=== PATIENT | male | born 1960 | race Caucasian/White ===

== ENCOUNTER 2018-03-01 13:15 | Emergency (ER) | payer SELFPAY ==
[2018-03-01 13:57] VITALS: BP 132/90; TEMP 98.6; O2SAT 97
--- NOTE | 2018-03-01 14:02 | ED.PDOC ---
History of Present Illness - General Chief Complaint: Skin/Abrasion/Tear Stated Complaint: rash, "shingles" Time Seen by Provider: 03/01/18 13:59 Source: patient Exam Limitations: no limitations - History of Present Illness Initial Comments: The patient is a 57-year-old male presenting to the emergency room secondary to 3 days of pain to his right lower abdomen at the site where he has previously had shingles. He does have a rash that is about the size of a silver dollar. He does have scarring from the previous shingles. He does not have any tramadol or acyclovir. He has been more than a year since his last outbreak. No other symptoms. No evidence of any deeper infection at this time. No evidence of significant rash elsewhere. Timing/Duration: other - 3 days Severity: moderate Improving Factors: nothing Worsening Factors: nothing Associated Symptoms: denies symptoms Allergies/Adverse Reactions: Allergies Ibuprofen Allergy (Verified 03/01/18 13:50) Ketorolac Tromethamine [From Toradol] Allergy (Verified 03/01/18 13:50) NSAIDs Allergy (Verified 03/01/18 13:50) Penicillins Allergy (Verified 03/01/18 13:49) Sulfa Antibiotics Allergy (Verified 03/01/18 13:49) Home Medications: Ambulatory Orders Acyclovir [Zovirax] 800 mg PO 5XD #35 tab 03/01/18 Atenolol [Tenormin] 25 mg PO DAILY 03/01/18 Gabapentin 600 mg PO BID 03/01/18 Tramadol HCl 50 mg PO Q8HR PRN #30 tab 03/01/18 Review of Systems - Review of Systems Constitutional: States: no symptoms reported EENTM: States: no symptoms reported Respiratory: States: no symptoms reported Cardiology: States: no symptoms reported Gastrointestinal/Abdominal: States: no symptoms reported Genitourinary: States: no symptoms reported Musculoskeletal: States: no symptoms reported Skin: States: see HPI Neurological: States: no symptoms reported Endocrine: States: no symptoms reported All other Systems: No Change from Baseline Past Medical History (General) - Patient Medical History Hx Seizures: No Hx Stroke: No Hx Asthma: No Hx Cardiac Disorders: No Hx Hypertension: Yes Hx Diabetes: No Surgical History: cholecystectomy, tonsillectomy Family Medical History - Family History Mother Family History: No Known Physical Exam - Physical Exam General Appearance: Alert, Comfortable, No apparent distress Eye Exam: bilateral normal Ears, Nose, Throat: normal pharynx, other - chronic hearing loss Neck: full range of motion, supple Respiratory: no respiratory distress, no accessory muscle use Cardiovascular/Chest: normal peripheral pulses, no edema Peripheral Pulses: radial,right: 2+, radial,left: 2+ Gastrointestinal/Abdominal: non tender - except at the site of the shingles, soft Rectal Exam: deferred Extremity: non-tender, normal inspection, no pedal edema, normal capillary refill 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 No evidence of superimposed infection at this time. Comments: Vital Signs - 24 hr 03/01/18 13:52 Temperature 98.6 F Respiratory 20 Rate Blood Pressure 132/90 [left brachial] O2 Sat by Pulse 97 Oximetry Progress - Progress Progress: 03/01/18 14:02 the patient is a 57-year-old male presenting to emergency room secondary to a recurrent shingles flare. The patient will be placed on acyclovir and will be written for tramadol for pain control. He does need to keep follow-up with his primary care doctor in a week to 2 weeks. ER warnings were given. Departure - Departure Clinical Impression: Shingles Qualifiers: Herpes zoster complications: without complications Qualified Code(s): B02.9 - Zoster without complications Disposition: Discharge to Home or Self Care Condition: Fair Departure Forms: ED Discharge - Pt. Copy, Patient Portal Self Enrollment Instructions: Shingles (DC) Diet: regular diet Activity: increase activity as tolerated Prescriptions: Tramadol HCl 50 mg PO Q8HR PRN #30 tab PRN Reason: Moderate To Severe Pain Acyclovir [Zovirax] 800 mg PO 5XD #35 tab Home Medications: Ambulatory Orders Acyclovir [Zovirax] 800 mg PO 5XD #35 tab 03/01/18 Atenolol [Tenormin] 25 mg PO DAILY 03/01/18 Gabapentin 600 mg PO BID 03/01/18 Tramadol HCl 50 mg PO Q8HR PRN #30 tab 03/01/18 Additional Instructions: the patient is a 57-year-old male presenting to emergency room secondary to a recurrent shingles flare. The patient will be placed on acyclovir and will be written for tramadol for pain control. He does need to keep follow-up with his primary care doctor in a week to 2 weeks. ER warnings were given.
== END 2018-03-01 14:00 | disposition home or self-care (01) ==
LOC: ER 13:15
DX: B02.9 Zoster without complications (principal); I10 Essential (primary) hypertension; Z88.6 Allergy status to analgesic agent; Z88.0 Allergy status to penicillin; Z88.2 Allergy status to sulfonamides; Z88.8 Allergy status to other drugs, medicaments and biological substances